=== PATIENT | female | born 1955 | race Caucasian/White ===

== ENCOUNTER 2021-04-20 19:34 | Emergency (ER) | payer MEDICARE ==
[~2021-04-20] VITALS: Ht 154.9 cm; Wt 62.6 kg
[2021-04-20] MEDS ORDERED: NEURONTIN100 MG PO (19:51)
[2021-04-20] MEDS ORDERED: CYMBALTA60 MG PO (19:51)
[2021-04-20] MEDS ORDERED: LISINOPRIL5 MG PO (19:51)
[2021-04-20] MEDS ORDERED: PLAVIX 75 MG TA75 MG PO (19:52)
[2021-04-20] MEDS ORDERED: NITROSTAT0.4 M1 PO (19:52)
[2021-04-20 22:37] LABS: URINE BILIRUBIN NEGATIVE (Negative); URINE BLOOD NEGATIVE (Negative); URINE CLARITY CLEAR; URINE COLOR YELLOW; URINE GLUCOSE-RANDOM 3+ (Negative); URINE KETONES TRACE (Negative); URINE LEUKOCYTES-REFLEX NEGATIVE (Negative); URINE NITRITE-REFLEX NEGATIVE (Negative); URINE PROTEIN 1+ (Negative); URINE UROBILINOGEN 0.2 E.U./dl (0.2-1.0)
[2021-04-20 23:11] LABS: ABSOLUTE LYMPHOCYTES 1.5 thou/uL (0.8-5.3); ABSOLUTE MONOCYTES 0.5 thou/uL (0.0-1.2); ABSOLUTE NEUTROPHILS 1.4 thou/uL (1.6-8.1); BASOPHILS 1.1 %; EOSINOPHILS 0.3 %; HEMATOCRIT 35.2 % (37.0-47.0); HEMOGLOBIN 11.7 gm/dL (12.0-15.0); LYMPHOCYTES 44.8 %; MCH 30.8 pg (26.0-34.0); MCHC 33.4 g/dL (28.0-37.0); MCV 92.3 fL (80.0-100.0); MONOCYTES 13.9 %; MPV 7.9 fl. (7.2-11.1); NUCLEATED RBCS 0 /100WBC; PLATELET COUNT* 172 thou/uL (150-400); POLYS 39.9 %; RBC 3.81 mil/uL (4.20-5.00); RDW-CV 15.1 % (10.5-14.5); WBC 3.4 thou/uL (4.0-11.0)
[2021-04-20 23:24] LABS: CALCIUM 8.1 mg/dL (8.5-10.1); CREATININE 1.4 mg/dL (0.6-1.3); POTASSIUM 4.7 mmol/L (3.5-5.1)
[2021-04-20 23:25] LABS: ALBUMIN 3.5 g/dL (3.4-5.0); TOTAL BILIRUBIN 0.4 mg/dL (<0.1-1.0); TOTAL PROTEIN 7.5 g/dL (6.4-8.2)
[2021-04-21 02:37] LABS: CALCIUM 7.7 mg/dL (8.5-10.1); CREATININE 1.3 mg/dL (0.6-1.3)
[2021-04-21] MEDS ORDERED: MACROBID 100 M100 M1 PO (02:47)
[2021-04-21] MEDS ORDERED: BACTRIM DS TAB1 EACH PO (02:55)
[2021-04-21 03:02] VITALS: BP 155/66
== END 2021-04-21 03:02 | disposition home or self-care (01) ==
LOC: M.ERS 19:34
PROVIDERS: Personal Emergency Response Attendant
DX: N39.0 Urinary tract infection, site not specified (principal); E11.65 Type 2 diabetes mellitus with hyperglycemia; Z91.11 Patient's noncompliance with dietary regimen; Z90.710 Acquired absence of both cervix and uterus; Z90.49 Acquired absence of other specified parts of digestive tract; Z98.890 Other specified postprocedural states; Z79.899 Other long term (current) drug therapy; Z88.0 Allergy status to penicillin